=== PATIENT | female | born 1955 | race Caucasian/White ===

== ENCOUNTER 2017-10-04 06:55 | Day surgery (SDC) | payer MEDICARE ==
[~2017-10-04] VITALS: Ht 182.9 cm; Wt 100.7 kg
[~2017-10-04 06:55] MED LIST: ADLT ASA LOW81 MG PO; LEVOTHYROXIN150 MCG PO; LOVASTATIN20 M1 PO; METFORMIN500 MG PO
[2017-10-04 11:18] VITALS: BP 120/61
== END 2017-10-04 11:03 | disposition home or self-care (01) ==
LOC: ENDO 06:55 → ORM 09:00 → ENDO 09:45
PROVIDERS: ATTEND Internal Medicine Gastroenterology
PROC: 0DBN8ZX Excision of Sigmoid Colon, Via Natural or Artificial Opening Endoscopic, Diagnostic (ICD-10-PCS; principal; 2017-10-04)
DX: K57.30 Diverticulosis of large intestine without perforation or abscess without bleeding (principal); R14.0 Abdominal distension (gaseous); K63.5 Polyp of colon; K64.8 Other hemorrhoids; D17.5 Benign lipomatous neoplasm of intra-abdominal organs; K64.4 Residual hemorrhoidal skin tags; E11.9 Type 2 diabetes mellitus without complications; E78.00 Pure hypercholesterolemia, unspecified; Z80.0 Family history of malignant neoplasm of digestive organs; Z86.010 Personal history of colon polyps; Z86.19 Personal history of other infectious and parasitic diseases

== ENCOUNTER 2021-11-02 06:31 | Day surgery (SDC) | payer MEDICARE ==
[~2021-11-02] VITALS: Ht 182.9 cm; Wt 99.3 kg
[~2021-11-02 06:31] MED LIST changes: +ESCITALOPRAM OXA5 MG PO; +FERROUS SULFAT325 MG PO; +GABAPENTIN100 MG PO; +JANUVIA50 MG PO; +METFORMIN HCL1000 MG PO; +PANTOPRAZOLE SO40 M1 PO; +VITAMIN B-12500 MCG PO; +VITAMIN D350000 UNIT PO
[2021-11-02] MEDS ORDERED: LORTAB 5/3255 MG PO (09:01)
[2021-11-02 09:46] VITALS: BP 137/75
== END 2021-11-02 10:08 | disposition home or self-care (01) ==
LOC: ORM 06:31
PROVIDERS: ATTEND Surgery
PROC: 0HBT0ZZ Excision of Right Breast, Open Approach (ICD-10-PCS; principal; 2021-11-02)
DX: D24.1 Benign neoplasm of right breast (principal); N62 Hypertrophy of breast; E11.40 Type 2 diabetes mellitus with diabetic neuropathy, unspecified; J44.9 Chronic obstructive pulmonary disease, unspecified; Z79.84 Long term (current) use of oral hypoglycemic drugs
CPT/HCPCS: J0131